=== PATIENT | male | born 1935 | race African-American/Black ===

== ENCOUNTER 2018-05-30 07:50 | Inpatient (IN) | payer MEDICARE, MEDICAID ==
[~2018-05-30] VITALS: Ht 170.2 cm; Wt 84.8 kg
[2018-05-30 10:27] LABS: BASOPHILS % 0.4 % (0.0-2.0); EOSINOPHILS % 3.4 % (0.0-5.0); HEMATOCRIT. 44.2 % (42.0-52.0); HEMOGLOBIN. 14.4 g/dL (14.0-18.0); LYMPHOCYTES % 31.9 % (20.0-50.0); MEAN CORPUSCULAR HEMOGLOBIN 30.3 pg (28.0-32.0); MEAN CORPUSCULAR VOLUME 93.4 fL (80.0-94.0); MEAN PLATELET VOLUME 8.1 fl (7.4-10.4); MONOCYTES % 9.6 % (2.0-8.0); NEUTROPHILS % 54.7 % (40.0-76.0); PLATELET 221 x1000/uL (130-400); RED BLOOD CELL COUNT 4.73 mill/uL (4.7-6.1); RED CELL DISTRIBUTION WIDTH 12.7 % (11.6-14.6)
[2018-05-30 10:35] LABS: CHLORIDE 109 mEq/L (98-107)
[2018-05-30 14:02] LABS: CLARITY URINE CLEAR (CLEAR); COLOR URINE YELLOW (YELLOW); KETONES URINE NEGATIVE (NEGATIVE); LEUKOCYTE ESTERASE URINE NEGATIVE (NEGATIVE); NITRITE URINE NEGATIVE (NEGATIVE); OCCULT BLOOD URINE NEGATIVE (NEGATIVE); PROTEIN URINE NEGATIVE (NEGATIVE); SPECIFIC GRAVITY URINE 1.021 (1.005-1.030); UROBILINOGEN URINE 0.2 E.U./dL (0.2-1.0)
[2018-05-30] MEDS ORDERED: CLONIDINE 0.1MG TABLET PO PRN (21:00)
[2018-05-30] MEDS ORDERED: DIPHENHYDRAMINE 50MG/ML VIAL IV PRN (21:00)
[2018-05-30] MEDS ORDERED: ONDANSETRON HCL 4MG/2ML INJ IV PRN (21:00)
[2018-05-30] MEDS ORDERED: LORAZEPAM 2MG/ML CPJ IV PRN (21:00)
[2018-05-30 21:58] LABS: VITAMIN B12 SERUM 203 pg/mL (211-911)
[2018-05-30] MEDS: SODIUM CHLORIDE 0.9% INJ 3ML FLUSH IVF SCH (22:09)
[2018-05-31 03:15] VITALS: BP 149/81
[2018-05-31 04:00] VITALS: BP 149/82
[2018-05-31] MEDS: SODIUM CHLORIDE 0.9% INJ 3ML FLUSH IVF SCH ×3 (06:00→21:52)
[2018-05-31 08:00] VITALS: BP 133/70
[2018-05-31 12:00] VITALS: BP 121/67
[2018-05-31] MEDS: RISPERIDONE 1MG TABLET PO SCH (15:52)
[2018-05-31 16:00] VITALS: BP 136/73
[2018-05-31] MEDS: LORAZEPAM 2MG/ML CPJ IM PRN ×2 (16:57→21:39)
[2018-05-31] MEDS: ENOXAPARIN 40MG/0.4ML SYR SUBCUT SCH (18:00)
[2018-05-31 20:00] VITALS: BP 120/52
[2018-06-01] VITALS: BP 122/79
[2018-06-01 04:00] VITALS: BP 157/77
[2018-06-01] MEDS: SODIUM CHLORIDE 0.9% INJ 3ML FLUSH IVF SCH ×3 (04:27→22:00)
[2018-06-01] MEDS: CYANOCOBALAMIN 1000MCG/ML VIAL IM SCH (13:35)
[2018-06-01] MEDS: RISPERIDONE 1MG TABLET PO SCH (13:35)
[2018-06-01] MEDS: MEMANTINE HCL 5MG TABLET PO SCH (13:35)
[2018-06-01 16:00] VITALS: BP 120/63
[2018-06-01] MEDS: ENOXAPARIN 40MG/0.4ML SYR SUBCUT SCH (17:27)
[2018-06-01 20:00] VITALS: BP 105/50
[2018-06-01] MEDS: LORAZEPAM 2MG/ML CPJ IM PRN (22:54)
[2018-06-02] VITALS: BP 126/69
[2018-06-02 04:00] VITALS: BP 115/63
[2018-06-02] MEDS: SODIUM CHLORIDE 0.9% INJ 3ML FLUSH IVF SCH ×3 (06:00→22:00)
[2018-06-02] MEDS: LORAZEPAM 2MG/ML CPJ IM PRN ×2 (10:20→21:58)
[2018-06-02] MEDS: RISPERIDONE 1MG TABLET PO SCH (10:20)
[2018-06-02] MEDS: MEMANTINE HCL 5MG TABLET PO SCH (10:20)
[2018-06-02] MEDS: CYANOCOBALAMIN 1000MCG/ML VIAL IM SCH (10:20)
[2018-06-02] MEDS: ENOXAPARIN 40MG/0.4ML SYR SUBCUT SCH (17:58)
[2018-06-02 20:00] VITALS: BP 101/71
[2018-06-03] VITALS: BP 124/80
[2018-06-03 04:00] VITALS: BP 129/70
[2018-06-03] MEDS: SODIUM CHLORIDE 0.9% INJ 3ML FLUSH IVF SCH ×3 (06:00→22:00)
[2018-06-03 08:00] VITALS: BP_SYST 111; BP_SYST 116; BP_DIAS 68
[2018-06-03] MEDS: MEMANTINE HCL 5MG TABLET PO SCH (09:40)
[2018-06-03] MEDS: RISPERIDONE 1MG TABLET PO SCH (09:40)
[2018-06-03] MEDS: CYANOCOBALAMIN 1000MCG/ML VIAL IM SCH (09:40)
[2018-06-03 12:00] VITALS: BP 125/71
[2018-06-03 16:00] VITALS: BP 124/71
[2018-06-03] MEDS: ENOXAPARIN 40MG/0.4ML SYR SUBCUT SCH (17:02)
[2018-06-03 20:00] VITALS: BP 120/71
[2018-06-04] VITALS: BP 129/76
[2018-06-04 04:00] VITALS: BP 112/74
[2018-06-04] MEDS: SODIUM CHLORIDE 0.9% INJ 3ML FLUSH IVF SCH ×3 (06:00→22:00)
[2018-06-04 08:00] VITALS: BP 126/66
[2018-06-04] MEDS: RISPERIDONE 1MG TABLET PO SCH (08:31)
[2018-06-04] MEDS: MEMANTINE HCL 5MG TABLET PO SCH (08:31)
[2018-06-04 12:00] VITALS: BP 96/63
[2018-06-04 16:00] VITALS: BP 104/70
[2018-06-04] MEDS: ENOXAPARIN 40MG/0.4ML SYR SUBCUT SCH (18:21)
[2018-06-04 20:00] VITALS: BP 122/74
[2018-06-05] VITALS: BP 122/72
[2018-06-05 04:00] VITALS: BP 130/70
[2018-06-05] MEDS: SODIUM CHLORIDE 0.9% INJ 3ML FLUSH IVF SCH ×3 (06:00→22:00)
[2018-06-05 08:00] VITALS: BP 122/76
[2018-06-05] MEDS: MEMANTINE HCL 5MG TABLET PO SCH (09:36)
[2018-06-05] MEDS: RISPERIDONE 1MG TABLET PO SCH (09:36)
[2018-06-05 12:00] VITALS: BP 129/67
[2018-06-05 16:00] VITALS: BP 130/85
[2018-06-05] MEDS: ENOXAPARIN 40MG/0.4ML SYR SUBCUT SCH (16:56)
[2018-06-05 20:00] VITALS: BP 147/83
[2018-06-06] VITALS: BP 132/95
[2018-06-06 04:00] VITALS: BP 108/66
[2018-06-06] MEDS: SODIUM CHLORIDE 0.9% INJ 3ML FLUSH IVF SCH (06:00)
[2018-06-06] MEDS: MEMANTINE HCL 5MG TABLET PO SCH (09:41)
[2018-06-06] MEDS: RISPERIDONE 1MG TABLET PO SCH (09:41)
[2018-06-06 12:00] VITALS: BP 118/71
[2018-06-06 16:00] VITALS: BP 120/78
[2018-06-06 20:00] VITALS: BP 123/72
[2018-06-07] VITALS: BP 128/77
[2018-06-07 04:00] VITALS: BP 110/66
[2018-06-07 08:00] VITALS: BP 109/62
[2018-06-07] MEDS: MEMANTINE HCL 5MG TABLET PO SCH (08:46)
[2018-06-07] MEDS: RISPERIDONE 1MG TABLET PO SCH (08:46)
[2018-06-07] MEDS: SODIUM CHLORIDE 0.9% INJ 3ML FLUSH IVF SCH ×2 (13:52→22:00)
[2018-06-07 15:59] VITALS: BP 114/70
[2018-06-07] MEDS: ENOXAPARIN 40MG/0.4ML SYR SUBCUT SCH (17:43)
[2018-06-07 20:00] VITALS: BP 134/68
[2018-06-08] VITALS: BP 134/69
[2018-06-08 04:00] VITALS: BP 119/82
[2018-06-08] MEDS: SODIUM CHLORIDE 0.9% INJ 3ML FLUSH IVF SCH ×3 (06:00→22:00)
[2018-06-08 08:00] VITALS: BP 108/71
[2018-06-08] MEDS: RISPERIDONE 1MG TABLET PO SCH (09:32)
[2018-06-08] MEDS: MEMANTINE HCL 5MG TABLET PO SCH (09:32)
[2018-06-08 12:00] VITALS: BP 129/74
[2018-06-08 16:00] VITALS: BP 114/81
[2018-06-08 20:00] VITALS: BP 135/87
[2018-06-08] MEDS: ENOXAPARIN 40MG/0.4ML SYR SUBCUT SCH (20:52)
[2018-06-09] VITALS (7 sets, daily range): BP systolic 19–133; BP diastolic 57–96
[2018-06-09] MEDS: SODIUM CHLORIDE 0.9% INJ 3ML FLUSH IVF SCH (06:00)
[2018-06-09] MEDS: MEMANTINE HCL 5MG TABLET PO SCH (08:51)
[2018-06-09] MEDS: RISPERIDONE 1MG TABLET PO SCH (08:51)
[2018-06-09] MEDS: ENOXAPARIN 40MG/0.4ML SYR SUBCUT SCH (18:00)
[2018-06-10] VITALS: BP 137/81
[2018-06-10 04:00] VITALS: BP 127/58
[2018-06-10 08:00] VITALS: BP 119/67
[2018-06-10] MEDS: MEMANTINE HCL 5MG TABLET PO SCH (09:23)
[2018-06-10] MEDS: RISPERIDONE 1MG TABLET PO SCH (09:24)
[2018-06-10 12:00] VITALS: BP 123/70
[2018-06-10] MEDS: SODIUM CHLORIDE 0.9% INJ 3ML FLUSH IVF SCH ×2 (13:01→13:31)
[2018-06-10 16:00] VITALS: BP 115/80
[2018-06-10] MEDS: ENOXAPARIN 40MG/0.4ML SYR SUBCUT SCH (18:16)
[2018-06-10 19:26] LABS: HEMATOCRIT 50.4 % (42.0-52.0); HEMOGLOBIN 16.4 g/dL (14.0-18.0); MEAN CORPUSCULAR HEMOGLOBIN 30.4 pg (28.0-32.0); MEAN CORPUSCULAR VOLUME 93.7 fL (80.0-94.0); PLATELET 250 x1000/uL (130-400); RED BLOOD CELL COUNT 5.37 mill/uL (4.7-6.1); RED CELL DISTRIBUTION WIDTH 12.8 % (11.6-14.6)
[2018-06-10 20:00] VITALS: BP 105/71
[2018-06-11] VITALS: BP 150/89
[2018-06-11 04:00] VITALS: BP 129/81
[2018-06-11 08:00] VITALS: BP 131/77
[2018-06-11] MEDS: MEMANTINE HCL 5MG TABLET PO SCH (09:31)
[2018-06-11] MEDS: RISPERIDONE 1MG TABLET PO SCH (09:31)
[2018-06-11 16:00] VITALS: BP 121/70
[2018-06-11] MEDS: ENOXAPARIN 40MG/0.4ML SYR SUBCUT SCH (17:51)
[2018-06-11 20:00] VITALS: BP 119/75
[2018-06-12] VITALS: BP 98/61
[2018-06-12 04:00] VITALS: BP 134/71
[2018-06-12] MEDS: SODIUM CHLORIDE 0.9% INJ 3ML FLUSH IVF SCH ×4 (06:41→22:00)
[2018-06-12 08:00] VITALS: BP 105/68
[2018-06-12] MEDS: MEMANTINE HCL 5MG TABLET PO SCH (09:14)
[2018-06-12] MEDS: RISPERIDONE 1MG TABLET PO SCH (09:14)
[2018-06-12 12:00] VITALS: BP 110/65
[2018-06-12 16:00] VITALS: BP 121/85
[2018-06-12] MEDS: ENOXAPARIN 40MG/0.4ML SYR SUBCUT SCH (18:09)
[2018-06-12 20:00] VITALS: BP 117/68
[2018-06-13] VITALS: BP 120/71
[2018-06-13 04:00] VITALS: BP 125/70
[2018-06-13] MEDS: SODIUM CHLORIDE 0.9% INJ 3ML FLUSH IVF SCH ×3 (06:00→21:08)
[2018-06-13 08:00] VITALS: BP 107/66
[2018-06-13] MEDS: RISPERIDONE 1MG TABLET PO SCH (09:42)
[2018-06-13] MEDS: MEMANTINE HCL 5MG TABLET PO SCH (10:19)
[2018-06-13 12:00] VITALS: BP 117/61
[2018-06-13 16:00] VITALS: BP 119/60
[2018-06-13] MEDS ORDERED: TUBERCULIN,PURIF.PROT.DERIV. 5 TU/0.1 ML SYR ID ONE ×2 (18:00→20:00)
[2018-06-13] MEDS: ENOXAPARIN 40MG/0.4ML SYR SUBCUT SCH (18:26)
[2018-06-13 20:00] VITALS: BP 133/76
[2018-06-14] VITALS: BP 115/68
[2018-06-14 04:00] VITALS: BP 116/67
[2018-06-14 08:00] VITALS: BP_SYST 133; BP_SYST 141; BP_DIAS 76; BP_DIAS 77
[2018-06-14] MEDS: RISPERIDONE 1MG TABLET PO SCH (08:37)
[2018-06-14] MEDS: MEMANTINE HCL 5MG TABLET PO SCH (08:38)
[2018-06-14 12:00] VITALS: BP 121/85
[2018-06-14 16:00] VITALS: BP 127/61
[2018-06-14 17:03] VITALS: BP 127/61
== END 2018-06-14 17:50 | disposition home or self-care (01) | DRG 52 ==
LOC: ER 07:50 → EDBEDREQTM 13:24 → EDBEDREQ 13:24 → EDBEDREQSVC 13:24 → EDBEDREQ 18:57 → ENRESERV 22:22 → 6EST 05-31 04:00
PROVIDERS: ADMIT Internal Medicine; ATTEND Internal Medicine
DX: G93.40 Encephalopathy, unspecified (principal); G30.9 Alzheimer's disease, unspecified; E44.1 Mild protein-calorie malnutrition; F02.80 Dementia in other diseases classified elsewhere, unspecified severity, without behavioral disturbance, psychotic disturbance, mood disturbance, and anxiety; G90.8 Other disorders of autonomic nervous system; E53.8 Deficiency of other specified B group vitamins; R73.9 Hyperglycemia, unspecified; I10 Essential (primary) hypertension; R29.6 Repeated falls; Z79.899 Other long term (current) drug therapy; Z68.29 Body mass index [BMI] 29.0-29.9, adult
CPT/HCPCS: 36415; 71045; 82607; 83036; 84443; 85027; 90585; 93005; 97162; 99285; J1650; J2060; J3420; J7042